=== PATIENT | female | born 1965 | race Caucasian/White ===

== ENCOUNTER 2022-05-16 07:30 | Outpatient (CLI) | payer BC | END 2022-05-16 07:31 | disposition home or self-care (01) | LOC: CSHCT 07:30 | PROVIDERS: ATTEND Urology | DX: N39.0 Urinary tract infection, site not specified (principal); N20.0 Calculus of kidney; Z87.448 Personal history of other diseases of urinary system; M89.9 Disorder of bone, unspecified; R91.1 Solitary pulmonary nodule | CPT/HCPCS: 74178 ==

== ENCOUNTER 2022-07-18 07:08 | Outpatient (CLI) | payer BC ==
[2022-07-18] MEDS ORDERED: Iopamidol 300 61% 100 ML VIAL FS ONE (08:52)
== END 2022-07-18 07:09 | disposition home or self-care (01) ==
LOC: CSHCT 07:08
PROVIDERS: ATTEND Internal Medicine
DX: C79.51 Secondary malignant neoplasm of bone (principal); R91.1 Solitary pulmonary nodule; N63.20 Unspecified lump in the left breast, unspecified quadrant; R93.89 Abnormal findings on diagnostic imaging of other specified body structures; G93.9 Disorder of brain, unspecified
CPT/HCPCS: 70470; 71260; 74177; Q9967

== ENCOUNTER 2022-10-24 07:40 | Outpatient (CLI) | payer BC | END 2022-10-24 07:41 | disposition home or self-care (01) | LOC: CSHCT 07:40 | PROVIDERS: ATTEND Internal Medicine | DX: C79.51 Secondary malignant neoplasm of bone (principal); C50.919 Malignant neoplasm of unspecified site of unspecified female breast; D16.4 Benign neoplasm of bones of skull and face; M89.8X8 Other specified disorders of bone, other site; R91.8 Other nonspecific abnormal finding of lung field | CPT/HCPCS: 70470; 71260; 74177 ==

== ENCOUNTER 2023-05-21 10:05 | Outpatient (CLI) | payer BC ==
[~2023-05-21 10:05] MED LIST: Iopamidol 300 61% 100 ML VIAL FS ONE
== END 2023-05-21 10:06 | disposition home or self-care (01) ==
LOC: CSHCT 10:05
PROVIDERS: ATTEND Internal Medicine
DX: C50.912 Malignant neoplasm of unspecified site of left female breast (principal); C79.9 Secondary malignant neoplasm of unspecified site; C79.51 Secondary malignant neoplasm of bone; R91.1 Solitary pulmonary nodule
CPT/HCPCS: 71260; 74177

== ENCOUNTER 2023-08-07 14:56 | Outpatient (CLI) | payer BC | END 2023-08-07 14:57 | disposition home or self-care (01) | LOC: CSHULT 14:56 | PROVIDERS: ATTEND Internal Medicine | DX: M79.89 Other specified soft tissue disorders (principal) ==

== ENCOUNTER 2024-04-11 09:16 | Outpatient (CLI) | payer BC | END 2024-04-11 09:17 | disposition home or self-care (01) | LOC: CSHMAMMO 09:16 | PROVIDERS: ATTEND Nurse Practitioner Adult Health | DX: M81.0 Age-related osteoporosis without current pathological fracture (principal); N63.20 Unspecified lump in the left breast, unspecified quadrant; M85.89 Other specified disorders of bone density and structure, multiple sites; Z85.3 Personal history of malignant neoplasm of breast | CPT/HCPCS: 77066; 77080; G0279 ==

== ENCOUNTER 2025-08-26 13:33 | Outpatient (CLI) | payer BC, MEDICARE | END 2025-08-26 13:34 | disposition home or self-care (01) | LOC: CSHULT 13:33 | PROVIDERS: ATTEND Internal Medicine | DX: R60.0 Localized edema (principal); C79.51 Secondary malignant neoplasm of bone; C50.919 Malignant neoplasm of unspecified site of unspecified female breast; I08.0 Rheumatic disorders of both mitral and aortic valves | CPT/HCPCS: 93306 ==